=== PATIENT | female | born 1975 | race Caucasian/White ===

== ENCOUNTER 2021-10-17 16:00 | Emergency (ER) | payer OTHER, SELFPAY ==
[2021-10-17 16:27] VITALS: BP 100/51; PULSE 60; RESP 18; TEMP 36.8; O2SAT 100
--- NOTE | 2021-10-17 16:52 | ED.URI ---
HPI - URI/Sore Throat General Chief Complaint: Upper Respiratory Infection Stated Complaint: Cough,Headache Time Seen by Provider: 10/17/21 16:52 Source: patient Mode of arrival: ambulatory Limitations: no limitations History of Present Illness HPI Narrative: 46-year-old female presents with complaint of allergy symptoms for 10 days. Reports runny nose, postnasal drainage, itchy ears and itchy nose. States 3 to 4 days ago she began having increased sinus congestion and pressure. Takes Flonase and Zyrtec daily. Does not like to take decongestants due to her history of A. fib and takes metoprolol. Afebrile. All systems reviewed and negative except as noted above. Related Data Allergies Allergy/AdvReac Type Severity Reaction Status Date / Time ciprofloxacin AdvReac Intermediate Palpitation Verified 10/17/21 17:12 s levofloxacin [From Levaquin] AdvReac Intermediate Palpitation Verified 10/17/21 17:12 s Review of Systems Review of Systems: CONSTITUTIONAL: Denies fever, chills, or sweats. EYES: Denies visual changes, redness, or discharge. ENT: Reports rhinorrhea, congestion, sore throat. Denies otalgia. CARDIOVASCULAR: Denies chest pain, palpitations, or edema. RESPIRATORY: Denies cough or dyspnea. GASTROINTESTINAL: Denies abdominal pain, nausea, vomiting, or diarrhea. GENITOURINARY: Denies dysuria or hematuria. SKIN: Denies rash or itching. MUSCULOSKELETAL: Denies back pain, joint pain, or myalgia. NEUROLOGIC: Denies headache, numbness, or weakness. PSYCHIATRIC: Denies anxiety or depression. All other systems reviewed are negative, except as documented in HPI. PMFSH Comments At time of signature, agree with nursing past medical, surgical, social and family history. There is no relevant family history pertinent to the presenting complaint. Exam Narrative: GENERAL: This is a well-nourished, well-developed patient, in no apparent distress. HEAD: normocephalic, atraumatic. EYES: PERRL. Sclera clear/white. Vision is grossly intact. EARS: External ears normal, auditory canals clear and without drainage, TMs normal without perforation. Hearing grossly intact. NOSE: External nose normal with clear nasal drainage. Swelling and erythema to nares. Bilateral maxillary sinus tenderness. THROAT: Mucous membranes moist, mild erythema to posterior pharynx with clear postnasal drainage. NECK: Neck supple, non-tender without lymphadenopathy, masses or thyromegaly. CARDIOVASCULAR: Regular rate and rhythm without murmurs, gallops, or rubs. RESPIRATORY: Clear to auscultation. Breath sounds equal bilaterally. No wheezes, rales, or rhonchi. SKIN: warm, Dry, intact with no suspicious lesions or rash, good texture and turgor. NEURO: awake, alert, and oriented to person, place and time. There were no obvious focal neurologic abnormalities. EXTREMITIES: Normal range of motion to all extremities. Course Course Level of Care: Express Care Visit Vital Signs Vital signs: Vital Signs Temperature 36.8 C 10/17/21 16: Pulse Rate 60 10/17/21 16:27 Respiratory Rate 18 10/17/21 16:27 Blood Pressure 100/51 L 10/17/21 16:27 Pulse Oximetry 100 10/17/21 16:27 Temperature 36.8 C 10/17/21 16:27 Pulse Rate 60 10/17/21 16:27 Respiratory Rate 18 10/17/21 16:27 Blood Pressure 100/51 L 10/17/21 16:27 Pulse Oximetry 100 10/17/21 16:27 Reviewed MDM - URI/Sore Throat MDM Narrative Medical decision making narrative: Patient is aware of diagnosis, understands and agrees to treatment plan. Anticipatory guidance given. Patient agrees to follow-up as directed and is aware of reasons to seek care at the emergency department. Portions of this record may have been created with voice recognition software We will treat for bacterial sinusitis due to 10-days of symptoms. Differential Diagnosis Differential diagnosis: Likely upper respiratory infection, sinusitis, viral infection, influenza and pharyngitis Discharge Plan
== END 2021-10-17 17:31 | disposition home or self-care (01) ==
PROVIDERS: Emergency Provider Nurse Practitioner Family
DX: J01.90 Acute sinusitis, unspecified (principal); B96.89 Other specified bacterial agents as the cause of diseases classified elsewhere; I48.91 Unspecified atrial fibrillation
CPT/HCPCS: 99203; G0463

== ENCOUNTER 2022-04-21 12:56 | Emergency (ER) | payer OTHER, SELFPAY ==
[2022-04-21 13:00] VITALS: BP 93/46; PULSE 52; RESP 18; TEMP 36.6; O2SAT 100
--- NOTE | 2022-04-21 13:00 | ED.DIZZY ---
HPI - Dizziness General Chief Complaint: Dizziness Stated Complaint: Dizziness,Low Heart Rate Time Seen by Provider: 04/21/22 13:00 Source: patient Mode of arrival: ambulatory Limitations: no limitations History of Present Illness HPI Narrative: Ms. Loving is a 46-year-old female patient presenting to the clinic today with complaints of dizziness and low heart rate. She reports she has a history of AFib. Her safety investigator/cause analyst just placed her on a new medication atenolol 3 weeks ago. She takes this medication at night to control heart rate. She reports that she has not been checking her pulse rate before taking the medication. Heart rate is 51 beats per minute and the clinic today. She denies any chest pain or shortness of breath only the dizziness at this time. Her blood pressure is also low systolic 93-states that a low blood pressure is normal for her Related Data Home Medications Medication Instructions Recorded Confirmed flecainide 50 mg tablet 50 mg PO BID 10/17/21 10/17/21 atenolol 25 mg tablet mg 04/21/22 04/21/22 Allergies Allergy/AdvReac Type Severity Reaction Status Date / Time ciprofloxacin AdvReac Intermediate Palpitation Verified 04/21/22 13:00 s levofloxacin [From Levaquin] AdvReac Intermediate Palpitation Verified 04/21/22 13:00 s Review of Systems Review of Systems: Pertinent positives per HPI. Patient denies any fever, chills, rash, headache, visual changes, cough, runny nose, sore throat, shortness of breath, chest pain, palpitations, nausea, vomiting, diarrhea, constipation, abdominal pain, or any urinary issues. PMFSH Comments At the time of my signature, I reviewed and agree with the nursing past medical, surgical, social, and family history. There is no relevant family history pertinent to the patient complaint. Exam Narrative: General: Well-developed, well nourished, in no apparent distress Head: Normocephalic, atraumatic Eyes: Pupils equally round and reactive to light bilaterally, EOM intact, sclera and conjunctive clear, no discharge, lids normal Ears: TMs intact and clear, ear canals clear, no drainage, grossly hearing normal. Nose: Nares patent, no discharge, no inflammation, no sinus tenderness. Mouth: Oropharynx without lesions or masses, good dentition, MMM. Neck: Supple, trachea midline, no enlargement of anterior or posterior cervical nodes, no thyroid masses or goiter palpable. Cardio: Sinus bradycardia-Regular rate and rhythm, s1 and s2 normal, no murmur appreciated. Resp: Clear to auscultation bilaterally anteriorly and posteriorly, no rhonchi, rales, wheezing or rubs Course Course Emergency Course: Portions of this record may have been created with voice recognition software. Level of Care: Express Care Visit Vital Signs Vital signs: Vital signs reviewed MDM - Dizziness MDM Narrative Medical decision making narrative: At the time of visit patient is resting comfortably on the exam table. She has hypotension, bradycardia, and dizziness. Recommend transfer to the ED for further evaluation and fluids. Supportive measures were discussed with the patient she voiced understanding of discharge instructions and agrees to treatment plan. Differential Diagnosis Differential diagnosis: Likely benign paroxysmal positional vertigo, orthostatic hypotension and other (Hypotension, sinus bradycardia) ECG Data EKG #1: Attestation: I personally reviewed and interpreted this ECG as follows: ECG completion date: 04/21/22 ECG completion time: 13:15 Prior ECG tracings: not available for review Interpretation: EKG shows sinus bradycardia with heart rate of 50 beats per minute without ectopy, MD interval 146 milliseconds, QRS durations 101 milliseconds, QT-QTC is 451-424 milliseconds, P-R-T axis is 53-52-42 Discharge Plan Discharge Clinical Impression: Dizziness, Hypotension, Bradycardia Patient Disposition: [facility]
--- NOTE | 2022-04-21 13:17 | ECG_ITS ---
Measurements Intervals [place] Rate: 50 P: 53 WA: 146 QRS: 52 QRSD: 101 T: 42 QT: 451 QTc: 413 Interpretive Statements SINUS BRADYCARDIA BORDERLINE ECG NO PREVIOUS ECG AVAILABLE FOR COMPARISON Electronically Signed On 04-21-2022 13:27:23 CDT by Robert Hightower D.O.
[2022-04-21 13:32] VITALS: BP 100/49; PULSE 51
[2022-04-21 13:33] VITALS: BP 105/51; BP 108/54; PULSE 56
== END 2022-04-21 13:29 | disposition short-term general hospital (02) ==
PROVIDERS: Emergency Provider Nurse Practitioner Family
DX: R42 Dizziness and giddiness (principal); I95.9 Hypotension, unspecified; R00.1 Bradycardia, unspecified; I48.91 Unspecified atrial fibrillation
CPT/HCPCS: 93005; 99213; G0463